=== PATIENT | female | born 1940 | race Two or more races ===

== ENCOUNTER → 2018-06-23 | Emergency (ER) | payer OTHER ==
[~2018-06-23] VITALS: Ht 160 cm; Wt 78.0 kg
[~2018-06-23] MED LIST: CRESTOR10 MG; FOLIC ACID1 MG; LEVOTHROID75 MCG; LISINOPRIL10 MG; NORVASC5 MG; PLAVIX75 MG; TAMOXIFEN CITRA20 MG; TOPROL XL50 M1; ULTRAM50 MG PO
== END | disposition left against medical advice (07) ==
LOC: ER 13:40
DX: I73.89 Other specified peripheral vascular diseases (principal)

== ENCOUNTER → 2020-08-05 15:00 | Outpatient (CLI) | payer OTHER | END | disposition home or self-care (01) | LOC: PPH VACUNA 15:00 | PROVIDERS: ATTEND Emergency Medicine Pediatric Emergency Medicine | DX: Z23 Encounter for immunization (principal) ==

== ENCOUNTER → 2020-08-26 09:00 | Outpatient (CLI) | payer OTHER | END | disposition home or self-care (01) | LOC: PPH VACUNA 09:00 | PROVIDERS: ATTEND Emergency Medicine Pediatric Emergency Medicine | DX: Z23 Encounter for immunization (principal) ==

== ENCOUNTER 2021-06-29 08:00 | Outpatient (CLI) | payer OTHER | END 2021-06-29 08:30 | disposition home or self-care (01) | LOC: PPH VACUNA 08:00 | PROVIDERS: ATTEND Emergency Medicine Pediatric Emergency Medicine | DX: Z23 Encounter for immunization (principal) ==

== ENCOUNTER 2025-05-13 08:07 | Emergency (ER) | payer OTHER ==
[~2025-05-13] VITALS: Ht 157.5 cm; Wt 83.9 kg
[2025-05-13] MEDS ORDERED: DEXAMETHASONE SODIUM PHOSPHATE 4 MG/ML VIAL IM STA (08:43)
[2025-05-13] MEDS ORDERED: KETOROLAC TROMETHAMINE 30 MG VIAL IM STA (08:44)
[2025-05-13] MEDS ORDERED: TYLENOL ARTHRI650 MG PO (08:47)
[2025-05-13] MEDS ORDERED: KETOROLAC TROMETHAMINE 30 MG VIAL ONE (09:18)
[2025-05-13] MEDS ORDERED: DEXAMETHASONE SODIUM PHOSPHATE 4 MG/ML VIAL ONE (09:19)
[2025-05-13 09:32] VITALS: BP 100/60; O2SAT 97
== END 2025-05-13 09:34 | disposition home or self-care (01) ==
LOC: ER 08:07
DX: M25.532 Pain in left wrist (principal); I10 Essential (primary) hypertension
CPT/HCPCS: 96372; 99282; J1100; J1885

== ENCOUNTER → 2025-06-02 | Emergency (ER) | payer OTHER ==
[~2025-06-02] VITALS: Ht 167.6 cm; Wt 68.0 kg
[~2025-06-02] MED LIST changes: +KAPSPARGO SPRIN25 MG PO; +TOPROL XL25 M1 PO; +TYLENOL ARTHRI650 MG PO
== END | disposition left against medical advice (07) ==
LOC: ER 18:42
DX: M79.662 Pain in left lower leg (principal); I10 Essential (primary) hypertension; E03.8 Other specified hypothyroidism